=== PATIENT | male | born 2000 | race Two or more races ===

== ENCOUNTER 2022-03-04 01:24 | Emergency (ER) | payer BC ==
[~2022-03-04] VITALS: Ht 175.3 cm; Wt 74.4 kg
--- NOTE | 2022-03-04 01:50 | NUR ---
TO ER BED 15. BIBRA 839 AND [employer] FOR SI AND CUTTING HIS WRIST. PD PLACED PT ON 5150. PT IS ALERT AND ORIENTED. RR EVEN AND NONLABORED. PT CHANGED INTO GOWN AND BELONGINGS OBTAINED AND SECURED IN LOCKER. SUICIDAL PRECAUTIONS IN PLACE. SITTER AT BEDSIDE. PT HAS MULTIPLE CUTS ON NECK AND L ARM. WOUNDS OPEN TO AIR,NOT ACTIVELY BLEEDING. CONNECTED TO MONITOR.
--- NOTE | 2022-03-04 02:23 | NUR ---
COVID SWAB COLLECTED
--- NOTE | 2022-03-04 02:24 | NUR ---
VALUABLE BELONGINGS (NECKLACE AND AIR PODS) GIVEN TO THE PATIENT'S GIRL YASEMIN MONTEZ
--- NOTE | 2022-03-04 02:24 | NUR ---
LAB AT BEDSIDE
[2022-03-04 02:34] LABS: BASOPHILS % (AUTO) 0.5 % (0.0-2.0); HEMATOCRIT 46 % (39-51); HEMOGLOBIN 15.3 g/dL (13.5-17.5); LYMPHOCYTES # (AUTO) 1.9 K/uL (0.8-4.8); LYMPHOCYTES % (AUTO) 22.8 % (20.0-44.0); MEAN CORPUSCULAR HGB CONC 33 g/dl (31.0-36.0); MEAN CORPUSCULAR VOLUME 86 fL (80-96); MONOCYTES # (AUTO) 0.7 K/uL (0.1-1.30); MONOCYTES % (AUTO) 7.9 % (2.0-12.0); NEUTROPHILS # (AUTO) 5.7 K/uL (1.8-8.9); NEUTROPHILS % (AUTO) 67.8 % (43.0-81.0); PLATELET COUNT (AUTO) 259 K/uL (150-450); RED BLOOD CELL COUNT(AUTO) 5.38 MIL/uL (4.5-6.0); WHITE BLOOD COUNT (AUTO) 8.4 K/uL (4.3-11.0)
[2022-03-04 02:55] LABS: CALCIUM, SERUM 9.6 mg/dL (8.5-10.1); POTASSIUM 3.2 mmol/L (3.5-5.1)
[2022-03-04 03:01] LABS: ALBUMIN 4.7 g/dL (3.4-5.0); BILIRUBIN,DIRECT 0.2 mg/dL (0.0-0.2); BILIRUBIN,TOTAL 0.4 mg/dL (0.2-1.0); TOTAL PROTEIN, SERUM 8.2 g/dL (6.4-8.2)
[2022-03-04 04:13] LABS: BILIRUBIN,URINE NEGATIVE (NEGATIVE); COLOR,URINE YELLOW (YELLOW); LEUKOCYTE ESTERASE ,URINE NEGATIVE (NEGATIVE); NITRITE, URINE NEGATIVE (NEGATIVE); PROTEIN,URINE NEGATIVE (NEGATIVE); UGLUCOSE NEGATIVE (NEGATIVE); UROBILINOGEN,URINE 0.2 EU/dL (0.2)
[2022-03-04 04:21] LABS: BACTERIA,URINE Rare /HPF (None Seen); RBC,URINE 0-2 /HPF (0-2); SQUAMOUS EPITHELIAL CELL,UR Few /HPF (None Seen); WBC,URINE 0-2 /HPF (0-3)
[2022-03-04 09:11] VITALS: BP 130/74
--- NOTE | 2022-03-04 09:56 | NUR ---
SILVIO received call from Renu ANGUIANO at [facility] [phone] , STATING IF PATIENT IS ADMITTED PATIENT COULD BE CONNECTED TO [facility] AT [facility] [phone] OUT PATIENT MENTAL [facility] SERVICES . IF NOT ADMITTED CALL, CALL SILVIO KIMBLE FOR NOTIFCATION .
--- NOTE | 2022-03-04 10:00 | NUR ---
[facility] hospital placemnet: The pt. is a 21 year old male who placed on a 5150 hold by [employer] for DTS, per EMR. BIANKA faxed clinicals to the following [facility] for possible placement: [facility] TEL: [phone] FAX: [phone] [facility] Tel:[phone] FAX:[phone] [facility] TEL: [phone] SW will follow up as needed.
--- NOTE | 2022-03-04 11:16 | NUR ---
received a call from [facility] and spoke to Rafal and information provided in regards with the patient and per Rafal he will call Niurka (social work lecturer) for updates.
--- NOTE | 2022-03-04 11:42 | NUR ---
Accepting Information: SW received call from [facility] that pt. was accepted to [facility] [[address], [place] [address] ] East Unit room #62/B under the care of Dr. Hurt, TEL: [phone] for nurse to nurse report. Patient will be picked up from [facility] at 1830 by [facility] ambulance SW notified RNBud.
--- NOTE | 2022-03-04 15:09 | NUR ---
ATTEMPTED TO CALL [phone] FOR REPORT BUT NO RESPONSE. WILL CALL AGAIN.
--- NOTE | 2022-03-04 15:16 | NUR ---
PT REPORT GIVEN TO BRODY MCKENNA AT [facility].
--- NOTE | 2022-03-04 18:05 | NUR ---
EMT AT BEDSIDE TO [employer]OTH PRINTER PT; BEDSIDE ENDORSEMENT GIVEN
--- NOTE | 2022-03-04 18:11 | NUR ---
CLINICALS AND DOCS PROVIDED TO EMT. PT PICKED UP VIA [facility].
== END 2022-03-04 18:11 ==
LOC: ER 01:30
DX: R45.851 Suicidal ideations (principal); F31.60 Bipolar disorder, current episode mixed, unspecified; F42.9 Obsessive-compulsive disorder, unspecified; Z91.51 Personal history of suicidal behavior; S41.112A Laceration without foreign body of left upper arm, initial encounter; Y28.9XXA Contact with unspecified sharp object, undetermined intent, initial encounter; Y92.410 Unspecified street and highway as the place of occurrence of the external cause
CPT/HCPCS: 99285; 85025; 80048; 80076; 81001; 36415; 87426; 80143; 80320; 80307; C9803; G0480

== ENCOUNTER 2022-11-14 08:37 | Emergency (ER) | payer BC, OTHER ==
[~2022-11-14] VITALS: Ht 162.6 cm; Wt 74.8 kg
--- NOTE | 2022-11-14 09:15 | NUR ---
[id number] & [id number] FROM HOME FOR SUICIDAL IDEATIONS. PT DENIES HI.
--- NOTE | 2022-11-14 09:33 | NUR ---
COVID SWAB COLLECTED AND SENT TO LAB
[2022-11-14 09:51] LABS: BASOPHILS % (AUTO) 0.6 % (0.0-2.0); EOSINOPHILS % (AUTO) 0.4 % (0.0-6.0); HEMATOCRIT 45 % (39-51); HEMOGLOBIN 15.1 g/dL (13.5-17.5); LYMPHOCYTES # (AUTO) 1.3 K/uL (0.8-4.8); LYMPHOCYTES % (AUTO) 21.3 % (20.0-44.0); MEAN CORPUSCULAR HGB CONC 34 g/dl (31.0-36.0); MEAN CORPUSCULAR VOLUME 84 fL (80-96); MONOCYTES # (AUTO) 0.5 K/uL (0.1-1.30); MONOCYTES % (AUTO) 8.1 % (2.0-12.0); NEUTROPHILS # (AUTO) 4.2 K/uL (1.8-8.9); NEUTROPHILS % (AUTO) 69.6 % (43.0-81.0); PLATELET COUNT (AUTO) 241 K/uL (150-450); RED BLOOD CELL COUNT(AUTO) 5.38 MIL/uL (4.5-6.0)
[2022-11-14 09:59] LABS: ALANINE AMINOTRANSFERASE 22 U/L (12-78); ALBUMIN 4.7 g/dL (3.4-5.0); ALCOHOL, BLOOD 183 mg/dL (0-10); ALKALINE PHOSPHATASE 83 U/L (46-116); ASPARTATE AMINOTRANSFERASE 19 U/L (15-37); BILIRUBIN,DIRECT 0.1 mg/dL (0.0-0.2); BILIRUBIN,TOTAL 0.4 mg/dL (0.2-1.0); CALCIUM, SERUM 9.4 mg/dL (8.5-10.1); CARBON DIOXIDE 27 mmol/L (21-32); CHLORIDE 108 mmol/L (98-107); CREATININE 0.8 mg/dL (0.6-1.3); GLUCOSE 89 mg/dL (74-106); POTASSIUM 3.6 mmol/L (3.5-5.1); SODIUM SERUM 145 mmol/L (136-145); TOTAL PROTEIN, SERUM 8.2 g/dL (6.4-8.2); UREA NITROGEN, BLOOD 8 mg/dL (7-18)
--- NOTE | 2022-11-14 11:17 | NUR ---
URINE COLLECTED AND SENT TO LAB
[2022-11-14 11:25] VITALS: BP 139/84
--- NOTE | 2022-11-14 11:36 | NUR ---
YASEMIN GIRLFRIEND [phone]
[2022-11-14 11:54] LABS: BILIRUBIN,URINE NEGATIVE (NEGATIVE); COLOR,URINE YELLOW (YELLOW); LEUKOCYTE ESTERASE ,URINE NEGATIVE (NEGATIVE); NITRITE, URINE NEGATIVE (NEGATIVE); PROTEIN,URINE NEGATIVE (NEGATIVE); UGLUCOSE NEGATIVE (NEGATIVE); UROBILINOGEN,URINE 0.2 EU/dL (0.2)
--- NOTE | 2022-11-14 12:10 | NUR ---
FAXED CLINICALS TO [facility]
[2022-11-14 12:20] LABS: BACTERIA,URINE None seen /HPF (None Seen); RBC,URINE 0-3 /HPF (0-2); SQUAMOUS EPITHELIAL CELL,UR Rare /HPF (None Seen); WBC,URINE NONE SEEN /HPF (0-3)
--- NOTE | 2022-11-14 12:20 | NUR ---
FAXED CLINICALS TO [facility]
[2022-11-14] MEDS ORDERED: SERT100T12 PO (13:58)
[2022-11-14] MEDS ORDERED: LAMO200T10 PO (13:58)
--- NOTE | 2022-11-14 14:04 | NUR ---
PT ACCEPTED AT [facility] UNDER DR RAMIRES, # FOR REPORT [phone] [facility] WILL CALL BACK FOR TRANSPORT INFO.
--- NOTE | 2022-11-14 14:11 | NUR ---
[facility] WILL TRANSPORT ETA 75 MINS.
--- NOTE | 2022-11-14 14:27 | NUR ---
GAVE REPORT TO SCOTT SKINNER AT [facility] [phone].
--- NOTE | 2022-11-14 15:15 | NUR ---
TRANSPORTED TO [facility]. CONDITION: STABLE
== END 2022-11-14 15:20 ==
LOC: ER 08:40
DX: S51.812A Laceration without foreign body of left forearm, initial encounter (principal); R45.851 Suicidal ideations; F32.A Depression, unspecified; F10.129 Alcohol abuse with intoxication, unspecified; Z20.822 Contact with and (suspected) exposure to COVID-19; Y28.1XXA Contact with knife, undetermined intent, initial encounter; Y93.89 Activity, other specified; Y92.89 Other specified places as the place of occurrence of the external cause; Y99.8 Other external cause status
CPT/HCPCS: 99285; 85025; 80048; 80076; 81001; 36415; 87426; 80143; 80320; 80307; C9803; G0480